=== PATIENT | female | born 1985 | race Caucasian/White ===

== ENCOUNTER 2021-01-21 17:52 | Emergency (ER) | payer SELFPAY ==
--- NOTE | 2021-01-21 18:10 | HMH.EDUTC ---
[facility] [place] Impression: Abscess of right axilla Disposition: Home, Self-Care Condition on Discharge: Good Instructions: DI for Incision and Drainage of a Skin Abscess Additional Instructions: Take antibiotics as prescribed until gone Culture should be available Friday Prescriptions: Sulfamethoxazole/Trimethoprim [Bactrim DS tablet] 1 each PO BID 10 Days #20 tab Transmission Status: Pending to [facility] Referrals: Carina Vidales [Primary Care Provider] - Time of Disposition: 18:36 Medical Decision Making - Donovan Inquiry Pt receiving controlled substance: No Vital Signs: 01/21/21 18:24 Temperature 98.4 F Temperature Source Oral Pulse Rate [Right] 81 Respiratory Rate 18 Blood Pressure [Right Arm] 164/91 H Blood Pressure Mean [Right Arm] 115 02 Sat by Pulse Oximetry 97 Oxygen Delivery Method Room Air Orders (Tests/Meds): ORDERS Category Date Time Status Wound Culture and Gram Stain Stat Micro 01/21/21 18:00 [place] [facility] [place] General Stated complaint: boil under right arm Time Seen by Provider: 01/21/21 18:10 - History of Present Illness Provider Complaint: Abscess to right axilla for a few days. Very painful. Spontaneously drained earlier today at work. Foul odor to drainage. Still has significant sized knot. Onset (ago): day(s) (3) Location: chest, right Relieving factors: none Exacerbating factors: none Associated symptoms: denies other symptoms Treatments prior to arrival: none - Related Data Previous Rx's Medication Instructions Recorded amoxicillin 500 mg tablet 500 mg PO BID 10 Days #20 tab 01/16/20 Sulfamethoxazole/Trimethoprim 1 each PO BID 10 Days #20 tab 01/21/21 [Bactrim DS tablet] Allergies Allergy/AdvReac Type Severity Reaction Status Date / Time No Known Allergies Allergy Verified 01/16/20 11:01 [facility] History - Hepatitis A Screen Attestation statement:: This patient has been screened for Hepatitis A risk factors. I have reviewed the patient's past medical history: Yes Laterality Cases: Bilateral: Myringotomy (Ear Tubes) Other Surgeries: Yes: No Previous Surgery Amputation: No Fractures: No - Social History Smoking Status: Current every day smoker Tobacco Type: cigarettes # Packs/Day (cigarettes): 1 Alcohol Intake: never Alcohol Intake Frequency:: 0-2 drinks per day Substance Use Type: denies use Occupational Status: employed Housing: house Household Members: family Family Hx:: Non-contributory ROS Obtained: Yes All systems reviewed & no additional complaints - Integumentary/Breasts Skin/Breast: Reports as per HPI, Reports boil Physical Exam - General General appearance: alert, in no apparent distress - Head Head exam: normocephalic - Eye Eye exam: Present: PERRL - Chest Chest inspection: Present: abscess (right axilla) - Respiratory Respiratory exam: Present: normal lung sounds bilaterally - Cardiovascular Cardiovascular exam: Present: regular rate, normal rhythm - Neurological Exam Neurological exam: Present: alert, oriented X3 - Psychiatric Psychiatric exam: Present: normal affect, normal mood - Skin Skin exam: Present: warm, dry, intact Procedures - Abscess I/D Site: upper extremity Side (if applicable): right Sedation/analgesia: none Local Anesthetic: lidocaine 2% Amount of anesthesia used (mL): 1.0 Technique: incised with #11 blade Irrigation: No Packing used?: iodoform Complications: bleeding
[2021-01-21 18:24] VITALS: BP 164/91; PULSE 81; RESP 18; TEMP 36.9; O2SAT 97; BMI 46.1
[2021-01-21 18:40] VITALS: BP 145/71; PULSE 78; RESP 18; TEMP 36.8; O2SAT 98
== END 2021-01-21 18:52 | disposition home or self-care (01) ==
PROVIDERS: Emergency Provider Physician Assistant; PCP Family Medicine
DX: L02.411 Cutaneous abscess of right axilla (principal); F17.210 Nicotine dependence, cigarettes, uncomplicated
CPT/HCPCS: 10060; 87070; 87077; 87186; 87205; 99202; G0463

== ENCOUNTER 2021-04-28 17:02 | Emergency (ER) | payer OTHER, SELFPAY ==
[2021-04-28 17:10] VITALS: BP 164/98; PULSE 88; RESP 22; TEMP 37; O2SAT 98; BMI 56.8
--- NOTE | 2021-04-28 17:31 | HMH.EDUTC ---
[facility] [place] Clinical Impression: Strep sore throat Finger contusion Qualifiers: Encounter type: initial encounter Finger: middle finger Damage to nail status: without damage Laterality: left Qualified Code(s): S60.032A - Contusion of left middle finger without damage to nail, initial encounter Disposition: Home, Self-Care Condition on Discharge: Good Instructions: DI for Strep Throat Additional Instructions: Start antibiotics today be sure to take it as ordered with the full length of time although you should start feeling better in 24-48 hours. Change toothbrush and toothpaste 24-48 hours after starting antibiotics Tylenol or Motrin as needed for fever or pain Encourage fluids, water, Gatorade, Powerade, try cold fluids, popsicles, ice cream will make it feel better You are contagious for 24 hours. Avoid kissing anyone, no eating or drinking after anyone. You are contagious. Follow-up the ER for new or worsening symptoms or no noticeable improvement over the next 24-48 hours. Follow-up with PCP this week. Prescriptions: Azithromycin [Zithromax 250mg tab] 250 mg PO DIRECTED #6 tab Transmission Status: Received by [facility] Referrals: Carina Vidales [Primary Care Provider] - Time of Disposition: 17:48 Medical Decision Making - Donovan Inquiry Pt receiving controlled substance: No Vital Signs: 04/28/21 17:10 Temperature 98.6 F Temperature Source Oral Pulse Rate [Right Brachial] 88 Respiratory Rate 22 Blood Pressure [Right Arm] 164/98 H Blood Pressure Mean [Right Arm] 120 Blood Pressure Source [Right Arm] Automatic Cuff Blood Pressure Position [Right Arm] Sitting 02 Sat by Pulse Oximetry 98 Oxygen Delivery Method Room Air - Lab Data Lab Results 04/28/21 17:14: Strep Scn Rapid Clinic Positive A Orders (Tests/Meds): ORDERS Category Date Time Status Hand XR left minimum 3 views [XR hand LT min 3V] Stat Exams 04/28/21 17:40 Taken Covid-19 Nasal PCR ([facility]) Routine Lab 04/28/21 17:15 Received [facility] [place] HPI - General Chief complaint: Urgent Treatment Center Stated complaint: covid test,sore throat,cough,OROSCO,weak V?D Time Seen by Provider: 04/28/21 17:32 Mode of Arrival: Ambulatory Source of Information: Patient Limitations: No Limitations Description of Symptoms (Recalled from Triage Doc. by RN): PATIENT C/O DIARRHEA, COUGH AND WEAKNESS THAT STARTED FRIDAY AND HAS GOTTEN WORSE HEENT Symptoms (Recalled from RN notes): No Resp Symptoms (Recalled from RN notes): Yes Skin Symptoms (Recalled from RN notes): No MS Symptoms (Recalled from RN notes): No Functional Status (Recalled from RN notes): WNL - History of Present Illness Provider Complaint: 35 yr old female presents for n/v/d. congestion,orosco,sore throat and body aches. pt states she also hurt her left middle finger and thinks it may be broke - Related Data Previous Rx's Medication Instructions Recorded Azithromycin [Zithromax 250mg 250 mg PO DIRECTED #6 tab 04/28/21 tab] Allergies Allergy/AdvReac Type Severity Reaction Status Date / Time No Known Allergies Allergy Verified 01/16/20 11:01 - Worker's Comp Is this a Worker's Comp case?: No [facility] History - Hepatitis A Screen Drug use history?: No High risk sexual behaviors?: No History of sexually transmitted infection?: No Currently employed?: No Childcare worker?: No Do you have indoor plumbing?: Yes Do you have electricity?: Yes Attestation statement:: This patient has been screened for Hepatitis A risk factors. I have reviewed the patient's past medical history: Yes Laterality Cases: Bilateral: Myringotomy (Ear Tubes) Other Surgeries: Yes: No Previous Surgery Amputation: No Fractures: No - Social History Smoking Status: Current every day smoker Tobacco Type: cigarettes # Packs/Day (cigarettes): 1 Alcohol Intake: never Alcohol Intake Frequency:: 0-2 drinks per day Substance Use Type: denies use Occupational St
[2021-04-28 17:32] LABS: UTC Strep Screen (Rapid) Positive (Negative)
--- NOTE | 2021-04-28 17:40 | XR_ITS ---
PROCEDURE INFORMATION: Exam: XR Left Hand Exam date and time: 04/28/21 05:40 PM Age: 35 years old Clinical indication: Finger(s) and hand; Patient HX: Lifted heavy object 04/25/21, pain 3rd left digit; Additional info: Injury TECHNIQUE: Imaging protocol: XR Left hand. Views: 3 or more views. COMPARISON: No relevant prior studies available. FINDINGS: Bones/joints: Normal. Soft tissues: Normal. IMPRESSION: No acute findings.
[2021-04-28 17:52] VITALS: BP 164/98; PULSE 88; RESP 22; TEMP 37; O2SAT 98
== END 2021-04-28 18:00 | disposition home or self-care (01) ==
PROVIDERS: Emergency Provider Nurse Practitioner Family; PCP Family Medicine
DX: J02.0 Streptococcal pharyngitis (principal); S60.032A Contusion of left middle finger without damage to nail, initial encounter; F17.210 Nicotine dependence, cigarettes, uncomplicated
CPT/HCPCS: 73130; 87880; 99202; C9803; G0463; U0003; U0005

== ENCOUNTER 2021-09-11 18:47 | Emergency (ER) | payer BC, SELFPAY ==
[2021-09-11 20:25] VITALS: BP 161/92; PULSE 91; RESP 19; TEMP 37; O2SAT 98; BMI 51.5
--- NOTE | 2021-09-11 20:39 | HMH.EDUTC ---
[facility] [place] Disposition Clinical Impression: Thoracic back pain Qualifiers: Chronicity: unspecified Back pain laterality: left Qualified Code(s): M54.6 - Pain in thoracic spine Disposition: Home, Self-Care Condition on Discharge: Good Instructions: Thoracic Back Pain Additional Instructions: Go home and rest. It would be best if you rested tomorrow too. No heavy lifting. No twisting. The muscle relaxer (cyclobenzaprine--Flexeril) will make you drowsy, so don't drive or operate heavy machinery after taking it. Follow up with your regular doctor. GO TO THE ER FOR ANY WORSENING SYMPTOMS OR CONCERN, ESPECIALLY BOWEL OR BLADDER ISSUES, SADDLE AREA NUMBNESS, FEVER, ETC Prescriptions: Cyclobenzaprine HCl [Cyclobenzaprine 10mg Tab] 10 mg PO BIDP PRN #20 tab PRN Reason: Muscle Spasm Transmission Status: Received by [facility] methylPREDNISolone [Medrol] 4 mg PO DIRECTED 6 Days #21 packet Transmission Status: Received by [facility] Referrals: Carina Monzon [Primary Care Provider] - Forms: Work/School Release Time of Disposition: 22:10 Medical Decision Making - Medical Records Medical records reviewed: No: I reviewed the patient's medical records. - Donovan Inquiry Pt receiving controlled substance: No Vital Signs: 09/11/21 20:25 Temperature 98.6 F Temperature Source Oral Pulse Rate [Left] 91 H Respiratory Rate 19 Blood Pressure [Right Arm] 161/92 H Blood Pressure Mean [Right Arm] 115 02 Sat by Pulse Oximetry 98 - Lab Data Lab results reviewed: Yes: I reviewed the patient's lab results. Lab Results 09/11/21 20:51: Urine Color Yellow, Urine Appearance Clear, Urine pH 6.5, Ur Specific [place] 1.020, Urine Protein Negative, Urine Glucose (UA) Negative, Urine Ketones Negative, Urine Blood Negative, Urine Nitrate Negative, Urine Bilirubin Negative, Urine Urobilinogen 0.2, Ur Leukocyte Esterase Trace, Tst Clinic Negative Orders (Tests/Meds): ED MEDICATIONS Discontinued Medications Generic Name Dose Route Start Last Admin Trade Name Freq PRN Reason Stop Dose Admin Ketorolac Tromethamine 60 mg 09/11/21 21:56 09/11/21 22:14 Ketorolac 60mg/2ml Vial IM 09/11/21 21:57 60 mg ONCE ONE Administration ORDERS Category Date Time Status Urine Culture Stat Micro 09/11/21 20:58 Received - Radiology Data #1 Image(s): Chest Image Reviewed: Yes I reviewed the patient's radiology image, Yes I have reviewed radiologist's interpretation Preliminary Findings: No Infiltrates Seen PROCEDURE INFORMATION: Exam: XR Chest Exam date and time: 09/11/2021 9:04 PM Age: 36 years old Clinical indication: Left-sided; Patient HX: Posterior left sided chest pain that started Friday night/friday morning. Smoker, HX of covid TECHNIQUE: Imaging protocol: XR of the chest. Views: 2 views. COMPARISON: No relevant prior studies available. FINDINGS: Lungs: Minimal left basilar atelectasis. Mild bilateral perihilar bronchial wall thickening, compatible with reactive airway disease or bronchitis. No focal consolidation. Pleural spaces: Unremarkable. No pleural effusion. No pneumothorax. Heart/Mediastinum: Normal. Bones/joints: No acute abnormality. IMPRESSION: 1. Mild bilateral perihilar bronchial wall thickening, compatible with reactive airway disease or bronchitis. 2. No focal consolidation. [facility] [place] HPI - General Stated complaint: back pain Time Seen by Provider: 09/11/21 20:39 Mode of Arrival: Ambulatory Source of Information: Patient Limitations: No Limitations Description of Symptoms (Recalled from Triage Doc. by RN): pt c/o pain in her L lower back. pt denies injury, n/v and urinary symptoms. HEENT Symptoms (Recalled from RN notes): No Resp Symptoms (Recalled from RN notes): No Skin Symptoms (Recalled from RN notes): No MS Symptoms (Recalled from RN notes
[2021-09-11 20:58] LABS: Apearance,Urine Clear (Clear); Bilirubin,Urine Negative (Negative); Blood, Urine Negative (Negative); Color,Urine Yellow (Yellow); Glucose,Urine (UA) Negative (Negative); Ketones,Urine Negative (Negative); PH,Urine 6.5 (5.0-8.5); Protein,Urine Negative (Negative); UTC Leukocyte Esterase,Urine Trace (Negative); UTC Nitrate,Urine Negative (Negative); UTC Pregnancy Test, Urine Negative (Negative); Urobilinogen,Urine 0.2 EU/dl (0.2)
--- NOTE | 2021-09-11 21:04 | XR_ITS ---
PROCEDURE INFORMATION: Exam: XR Chest Exam date and time: 09/11/2021 9:04 PM Age: 36 years old Clinical indication: Left-sided; Patient HX: Posterior left sided chest pain that started Friday night/friday morning. Smoker, HX of covid TECHNIQUE: Imaging protocol: XR of the chest. Views: 2 views. COMPARISON: No relevant prior studies available. FINDINGS: Lungs: Minimal left basilar atelectasis. Mild bilateral perihilar bronchial wall thickening, compatible with reactive airway disease or bronchitis. No focal consolidation. Pleural spaces: Unremarkable. No pleural effusion. No pneumothorax. Heart/Mediastinum: Normal. Bones/joints: No acute abnormality. IMPRESSION: 1. Mild bilateral perihilar bronchial wall thickening, compatible with reactive airway disease or bronchitis. 2. No focal consolidation.
--- NOTE | 2021-09-11 21:44 | ECG_ITS ---
APPROVED REPORT Exam: Resting ECG HR:79 bpm ECG Measurements Heart Rate 79 AXES SC 152 P 37 QRSd 97 QRS 47 QT 388 T 29 QTc 422 Conclusion SINUS RHYTHM NORMAL ECG UNCONFIRMED REPORT Electronically signed by : Moreno Page MD 09/12/2021 18:02:46
[2021-09-11 22:17] VITALS: BP 161/92; PULSE 91; RESP 19; TEMP 37
== END 2021-09-11 22:19 | disposition home or self-care (01) ==
PROVIDERS: Emergency Provider Nurse Practitioner Family; PCP Family Medicine
DX: M54.6 Pain in thoracic spine (principal); M54.50 Low back pain, unspecified; B96.4 Proteus (mirabilis) (morganii) as the cause of diseases classified elsewhere; F17.210 Nicotine dependence, cigarettes, uncomplicated; Z79.52 Long term (current) use of systemic steroids; Z79.899 Other long term (current) drug therapy
CPT/HCPCS: 71046; 81003; 81025; 87086; 87088; 87186; 93005; 93041; 96372; 99213; G0463

== ENCOUNTER 2022-11-23 14:38 | Emergency (ER) | payer BC, SELFPAY ==
[2022-11-23 14:45] VITALS: BP 140/90; PULSE 83; RESP 18; TEMP 37; O2SAT 100; BMI 55.0
--- NOTE | 2022-11-23 15:13 | EXP.UTC ---
Discharge Plan Disposition Patient Disposition: Home, Self-Care Condition: Good Prescriptions Prescriptions: New azithromycin [azithromycin] 250 mg tablet 250 mg PO DIRECTED Qty: 6 0RF Rx Instructions: Take two (2) tablets on day #1, then one (1) tablet day #2 thru #5 prednisone [prednisone] 20 mg tablet 20 mg PO BID Qty: 10 0RF fluticasone propionate [fluticasone propionate] 50 mcg/actuation spray,suspension 1 spray intranasal DAILY Qty: 9.9 0RF No Action atorvastatin 10 mg tablet 10 mg PO DAILY Label Comments: TAKE 1 TABLET BY MOUTH ONCE DAILY. glipizide 10 mg tablet 10 mg PO BID Label Comments: TAKE 1 TABLET BY MOUTH 2 TIMES DAILY (WITH MEALS). omeprazole 40 mg capsule,delayed release(DR/EC) 40 mg PO DAILY Label Comments: TAKE 1 CAPSULE BY MOUTH ONCE DAILY. estradiol 2 mg tablet 2 mg PO DAILY Label Comments: TAKE 1 TABLET BY MOUTH DAILY. lisinopril 5 mg tablet 5 mg PO DAILY Label Comments: TAKE 1 TABLET BY MOUTH DAILY. progesterone micronized 100 mg capsule 100 mg PO DAILY Label Comments: TAKE 1 CAPSULE BY MOUTH NIGHTLY. Mounjaro 15 mg/0.5 mL pen injector 15 mg SQ WEEKLY Label Comments: INJECT 15 MG SUBCUTANEOUSLY ONCE A WEEK Referrals Follow up/Referrals: Provider,Referral, MD [Primary Care Provider] - See instructions Activity Restrictions/Add. Instructions Additional Instructions/Restrictions: Start antibiotic today. Be sure to complete entire prescription even if feeling better Tylenol and ibuprofen as needed for pain or fever Humidifier/vaporizer/hot steamy shower Follow-up with primary care tomorrow. Follow-up immediately in the ER of the [facility] for new or worsening symptoms or no noticeable improvement over the next 48-72 hours. Stop smoking Start steroids today. monitor glucose while on steroids,Helps with inflammation therefore coughing and wheezing. flonase daily Clinical Impressions Clinical Impression: Acute maxillary sinusitis, Acute bronchitis Stand Alone Forms Stand Alone Forms: Work/School Release Instructions Patient Instructions: DI for Sinusitis Discharge ED Provider: Nelia ([facility])[place]ie [facility] [place] General Stated complaint: Congestion, bodyaches, Cough Mode of Arrival: Ambulatory Source of Information: Patient Limitations: No Limitations Time Seen by Provider: 11/23/22 15:13 Description of Symptoms (Recalled from Triage Doc. by RN): cough, light headed, OROSCO, chest and back pain, diarrhea, congestion, and productive cough. HEENT Symptoms (Recalled from RN notes): Yes Resp Symptoms (Recalled from RN notes): No Skin Symptoms (Recalled from RN notes): No MS Symptoms (Recalled from RN notes): No Functional Status (Recalled from RN notes): n/a History of Present Illness Provider Complaint: 37 yr old female presents for coughing up thick green sputum, light headed, OROSCO, chest and back pain with coughing, diarrhea, dark thick congestion, and productive cough. Related Data Home Medications Medication Instructions Recorded Confirmed atorvastatin 10 mg tablet 10 mg PO DAILY . 11/23/22 11/23/22 estradiol 2 mg tablet 2 mg PO DAILY . 11/23/22 11/23/22 glipizide 10 mg tablet 10 mg PO BID Diabetes 11/23/22 11/23/22 lisinopril 5 mg tablet 5 mg PO DAILY . 11/23/22 11/23/22 omeprazole 40 mg capsule,delayed 40 mg PO DAILY gerd 11/23/22 11/23/22 release progesterone micronized 100 mg 100 mg PO DAILY . 11/23/22 11/23/22 capsule tirzepatide 15 mg/0.5 mL 15 mg SQ WEEKLY Diabetes 11/23/22 11/23/22 subcutaneous pen injector (Anselmo) Previous Rx's Medication Instructions Recorded azithromycin 250 mg tablet 250 mg PO DIRECTED #6 tabs 11/23/22 fluticasone propionate 50 1 spray intranasal DAILY #9.9 mL 11/23/22 mcg/actuation nasal spray,suspension prednisone 20 mg tablet 20 mg PO BID #10 tabs 11/23/22 Allergies Allergy/AdvReac Type Severity Reaction
[2022-11-23 15:25] VITALS: BP 140/90; PULSE 83; RESP 18; TEMP 37; O2SAT 100
== END 2022-11-23 15:24 | disposition home or self-care (01) ==
PROVIDERS: Emergency Provider Nurse Practitioner Family
DX: J01.00 Acute maxillary sinusitis, unspecified (principal); J20.9 Acute bronchitis, unspecified; R07.89 Other chest pain; M54.9 Dorsalgia, unspecified; R19.7 Diarrhea, unspecified; F17.210 Nicotine dependence, cigarettes, uncomplicated
CPT/HCPCS: 99212; 99214; G0463

== ENCOUNTER 2023-06-10 08:17 | Emergency (ER) | payer BC, SELFPAY ==
[2023-06-10] VITALS (35 sets, daily range): BP systolic 78–252; BP diastolic 34–175; PULSE 73–113; RESP 12–45; TEMP 36.8; O2SAT 92–100; BMI 44.2
--- NOTE | 2023-06-10 | ECG_ITS ---
APPROVED REPORT Exam: Resting ECG HR:87 bpm ECG Measurements Heart Rate 87 AXES KS 175 P 46 QRSd 109 QRS 38 QT 374 T 30 QTc 418 Conclusion SINUS RHYTHM POSSIBLE LEFT ATRIAL ENLARGEMENT [-0.1mV P-WAVE IN V1/V2] LOW QRS VOLTAGE IN PRECORDIAL LEADS [QRS DEFLECTION < 1.0 mV IN CHEST LEADS] BORDERLINE ECG UNCONFIRMED REPORT Electronically signed by : Moreno Page MD 06/10/2023 16:51:51
[2023-06-10 08:27] LABS: VBG Base Excess -23.7 mmol/L (-2.4-2.3); VBG HCO3 11.4 mmol/L (23-30); VBG Oxygen Saturation 76.1 % (50-70); VBG PO2 64.1 mmol/L (28-40); VBG Total CO2 13.9 mmol/L (23-27)
--- NOTE | 2023-06-10 08:34 | PC.NURSE ---
RESPIRATORY CARE NOTE: SPUTUM SPECIMEN SENT TO LAB
--- NOTE | 2023-06-10 08:47 | CT_ITS ---
FINAL REPORT TECHNIQUE: Postcontrast axial images through the abdomen and pelvis were performed. This study was performed with techniques to keep radiation doses as low as reasonably achievable, (ALARA). Individualized dose reduction techniques using automated exposure control or adjustment of mA and/or kV according to the patient's size were employed. CLINICAL HISTORY: post code FINDINGS: Abdomen: The liver parenchyma is homogeneous. The gallbladder is absent. The spleen is unremarkable. The adrenals are normal. The pancreas is unremarkable. The kidneys enhance appropriately. The aorta is normal in caliber. No free fluid or adenopathy is identified. No findings for mechanical bowel obstruction are identified. Pelvis: The appendix is not identified. The urinary bladder is unremarkable. No free fluid, free air, abscess or adenopathy is identified. IMPRESSION: No acute process identified. Reviewed, Interpreted and Dictated by Murray Katz MD Transcribed by Linda Reid Authenticated and [facility]
--- NOTE | 2023-06-10 08:47 | CT_ITS ---
FINAL REPORT TECHNIQUE: Axial CT images were performed through the head. Coronal reformatted images were submitted. This study was performed with techniques to keep radiation doses as low as reasonably achievable (ALARA). Individualized dose reduction techniques using automated exposure control or adjustment of mA and/or kV according to the patient's size were employed. CLINICAL HISTORY: post code, hit head. loc since FINDINGS: The ventricles are normal in size. There is no evidence of hemorrhage. There is prominent coto white differentiation. There is no mass or edema identified. There is no abnormal extra-axial fluid seen. There is mild mucoperiosteal thickening in the left maxillary and ethmoid air cells. IMPRESSION: No acute intracranial process. Reviewed, Interpreted and Dictated by Murray Katz MD Transcribed by Linda Reid Authenticated and [facility]
--- NOTE | 2023-06-10 08:47 | CT_ITS ---
FINAL REPORT TECHNIQUE: After the administration of IV contrast, axial images through the head was performed by computed tomography. Sagittal and coronal reformatted images were obtained and reviewed. This study was performed with techniques to keep radiation doses as low as reasonably achievable (ALARA). Individualized dose reduction techniques using automated exposure control or adjustment of mA and/or kV according to the patient's size were employed. CLINICAL HISTORY: post code, fall hit head FINDINGS: The ventricles are normal in size. There is no evidence of hemorrhage. There is no mass or edema identified. There is no abnormal extra-axial fluid seen. There is mild mucoperiosteal thickening in the left maxillary and ethmoid sinuses. There is no evidence of abnormal contrast enhancement on the postcontrast images. IMPRESSION: No acute intracranial abnormality. Reviewed, Interpreted and Dictated by Murray Katz MD Transcribed by Linda Reid Authenticated and [facility]
--- NOTE | 2023-06-10 08:47 | CT_ITS ---
FINAL REPORT TECHNIQUE: The patient was injected with IV contrast. Axial images were obtained through the chest in a PE protocol. 3-D reconstruction images were also performed. Individualized dose reduction techniques using automated exposure control or adjustment of the MA and/or KV according to patient's size were employed. CLINICAL HISTORY: post code, intubated FINDINGS: The patient has been intubated. Endotracheal tube is in the right mainstem bronchus, needs to be retracted 2 cm. The pulmonary vasculature is suboptimally opacified but there is no definite pulmonary embolism or dissection. There is no axillary adenopathy. There is no hilar or mediastinal adenopathy. The heart size is normal. There is no pericardial or pleural effusion. Limited images of the upper abdomen are unremarkable. There are dense patchy bibasilar airspace infiltrates. There is also airspace opacity in the posterior aspect of both upper lobes consistent with acute pneumonia. IMPRESSION: No definite pulmonary embolus or dissection. Acute pneumonia. Mild positioned endotracheal tube. Needs to be retracted 2 cm. Ordering physician was notified of findings on 06/10 2023 at 10:40 a.m. Reviewed, Interpreted and Dictated by Murray Katz MD Transcribed by Linda Reid Authenticated and [facility]
--- NOTE | 2023-06-10 08:49 | XR_ITS ---
FINAL REPORT CLINICAL HISTORY: post code, intubated FINDINGS: SINGLE-VIEW CHEST The heart size is normal. The mediastinum is normal. Endotracheal tube is in the right mainstem bronchus. Needs to be retracted 2 cm. There is mild patchy airspace opacity in the perihilar and infrahilar regions. There is no pneumothorax. IMPRESSION: Mild positioned endotracheal tube. Ordering physician was notified of findings on 06/10/2023 at 10:40 a.m.. Airspace opacity in the perihilar and infrahilar regions. Reviewed, Interpreted and Dictated by Murray Katz MD Transcribed by Linda Reid Authenticated and [facility]
--- NOTE | 2023-06-10 08:57 | PC.NURSE ---
Dr Thurman spoke with family
--- NOTE | 2023-06-10 09:01 | HMH.EDGENADL ---
Discharge Plan Disposition Patient Disposition: Xfer Short-Term Hosp Condition: Critical Prescriptions Prescriptions: No Action atorvastatin 10 mg tablet 10 mg PO DAILY Patient Comments: TAKE 1 TABLET BY MOUTH ONCE DAILY. glipizide 10 mg tablet 10 mg PO BID Patient Comments: TAKE 1 TABLET BY MOUTH 2 TIMES DAILY (WITH MEALS). omeprazole 40 mg capsule,delayed release(DR/EC) 40 mg PO DAILY Patient Comments: TAKE 1 CAPSULE BY MOUTH ONCE DAILY. estradiol 2 mg tablet 2 mg PO DAILY Patient Comments: TAKE 1 TABLET BY MOUTH DAILY. lisinopril 5 mg tablet 5 mg PO DAILY Patient Comments: TAKE 1 TABLET BY MOUTH DAILY. progesterone micronized 100 mg capsule 100 mg PO DAILY Patient Comments: TAKE 1 CAPSULE BY MOUTH NIGHTLY. Mounjaro 15 mg/0.5 mL pen injector 15 mg SQ WEEKLY Patient Comments: INJECT 15 MG SUBCUTANEOUSLY ONCE A WEEK azithromycin [azithromycin] 250 mg tablet 250 mg PO DIRECTED Qty: 6 0RF Rx Instructions: Take two (2) tablets on day #1, then one (1) tablet day #2 thru #5 prednisone [prednisone] 20 mg tablet 20 mg PO BID Qty: 10 0RF fluticasone propionate [fluticasone propionate] 50 mcg/actuation spray,suspension 1 spray intranasal DAILY Qty: 9.9 0RF Referrals Follow up/Referrals: Provider,Referral, [Primary Care Provider] - See instructions Discharge ED Provider: Toño Larson General Adult HPI <Clare Thurman MD - Last Filed: 06/10/23 15:32> General Chief complaint: Cardiac Arrest/CPR Stated complaint: unresponsive Time Seen by Provider: 06/10/23 09:01 History of Present Illness HPI narrative: 37-year-old female with history of bilateral ovary resections, obesity, hypertension, diabetes, recent abscess I&D under general anesthesia coming into the ED via EMS after cardiac arrest. Family, who arrived to the hospital well after patient arrival noted that the patient woke up and was complaining of nausea and diaphoresis. Patient went to the bathroom and took her diabetic locations. Patient was reportedly returning to the bathroom when notes that she started shaking and she fell, striking her head hard on furniture. After patient fell onto the ground, notes agonal breathing and continued seizure-like activity. On EMS arrival, the patient was in asystole. ACLS was immediately initiated. In route, patient reportedly was shocked twice for pulseless ventricular tachycardia, was given multiple rounds of epinephrine, and an Igel was placed. Patient was reportedly down approximately 20 minutes before EMS had ROSC. On arrival to the ED, patient was hypoxic to 60% with Igel in place, cyanotic diffusely. Fingerstick was within normal limits. Patient was borderline hypotensive. Patient was immediately intubated with a 7.5 ET tube with rapid improvement of oxygen sats and perfusion as cyanosis improved significantly. Lafym-aa-rynd gas was notable for pH of 6.8. Patient was given 1 L of IV fluids, arterial line was placed and patient started on Levo drip. While being resuscitated, patient started having generalized tonic-clonic seizure-like activity, patient was given 2 rounds of 4 mg Versed, loaded with Keppra. Patient was immediately taken to CT scan once patient was stable. Related Data Home Medications Medication Instructions Recorded Confirmed atorvastatin 10 mg tablet 10 mg PO DAILY . 11/23/22 11/23/22 estradiol 2 mg tablet 2 mg PO DAILY . 11/23/22 11/23/22 glipizide 10 mg tablet 10 mg PO BID Diabetes 11/23/22 11/23/22 lisinopril 5 mg tablet 5 mg PO DAILY . 11/23/22 11/23/22 omeprazole 40 mg capsule,delayed 40 mg PO DAILY gerd 11/23/22 11/23/22 release progesterone micronized 100 mg 100 mg PO DAILY . 11/23/22 11/23/22 capsule tirzepatide 15 mg/0.5 mL 15 mg SQ WEEKLY Diabetes 11/23/22 11/23/22 subcutaneous pen injector (Anselmo) Previous Rx's Medication Instructio
[2023-06-10 09:04] LABS: ABG Base Excess -21.7 mmol/L (-2.4-2.3); ABG HCO3 9.7 mmhg (22.0-26.0); ABG Oxygen Saturation 99 % (90-100); ABG PCO2 41.1 mmhg (35.0-45.0); ABG PO2 242.3 mmhg (80-100)
[2023-06-10 09:05] LABS: Allen's Test Non Applicable; Oxygen 100% %; PEEP 8; Source Right Radial; Tidal Volume 420; Vent Rate 22
[2023-06-10 09:05] LABS: Chloride 108 mmol/L (98-107); Potassium 3.5 mmoL/L (3.5-5.1); Sodium 139 mmol/L (136-145)
[2023-06-10 09:06] LABS: Basophils # 0.2 K/mm3 (0-0.2); Basophils % 1.1 % (0.1-2.0); Eosinophils # 0.1 K/mm3 (0.0-0.4); Eosinophils % 0.7 % (0.1-12.0); Hematocrit 55.3 % (37.0-47.0); Hemoglobin 17.4 g/dL (12.2-16.2); Lymphocytes # 5.2 K/mm3 (0.7-4.5); Lymphocytes % 36.4 % (10-50); Mean Corpuscular HGB Conc 31.5 g/dL (31.8-35.4); Mean Corpuscular Hemoglobin 30.8 pg (27.0-31.2); Mean Corpuscular Volume 97.8 fl (81-99); Mean Platelet Volume 9.3 fl (7.4-10.4); Monocytes # 0.5 K/mm3 (0.1-1.0); Monocytes % 3.6 % (1.7-9.3); Neutrophils # 8.4 K/mm3 (1.8-7.8); Neutrophils % 58.3 % (37.0-80.0); Platelet Count 289 K/mm3 (142-424); Red Blood Count 5.65 M/mm3 (4.20-5.40); Red Cell Distribution Width 13.7 % (11.5-17.5); White Blood Count 14.3 K/mm3 (4.8-10.8)
[2023-06-10 09:08] LABS: Alanine Aminotransferase 97 U/L (12-78); Albumin Level 2.9 g/dl (3.5-5.0); Albumin/Globulin Ratio 1.2 (1.1-1.8); Alkaline Phosphatase 153 U/L (38-126); Anion Gap 18.5 mEq/L (5-15); Aspartate Amino Transferase 133 U/L (14-36); Bilirubin,Total 0.5 mg/dl (0.2-1.3); Blood Urea Nitrogen 14 mg/dl (7-17); Calcium 7.7 mg/dl (8.4-10.2); Carbon Dioxide 16 mmol/L (22.0-30.0); Creatinine Clearance Estimated 93 mL/min (50-200); Estimated Glomerular Filt Rate 70 ml/min (>60); GFR (African American) 85 ML/MIN (>60); Globulin 2.5 g/dL (1.3-3.2); Glucose 347 mg/dl (74-100); Total Protein,Serum 5.4 g/dl (6.3-8.2)
[2023-06-10 09:08] LABS: ABG PH 6.99 mmol/L (7.35-7.45)
[2023-06-10 09:21] LABS: Troponin I 0.04 ng/ml (0.00-0.034)
[2023-06-10 09:26] LABS: T4 (Thyroxine) 6.9 ug/dl (5.53-11.0)
[2023-06-10 09:39] LABS: Magnesium 2.3 mg/dl (1.6-2.3); Salicylate < 1.0 mg/dL (2.0-20.0); Thyroid Stimulating Hormone 4.89 uIU/mL (0.465-4.68)
[2023-06-10 09:40] LABS: Acetaminophen < 10 ug/ml (10-30)
--- NOTE | 2023-06-10 09:43 | PC.NURSE ---
[facility]ATH[facility] CONTACTED A THIS TIME, WILL CALL BACK
[2023-06-10 09:47] LABS: Ethyl Alcohol < 10 mg/dl (0-10)
[2023-06-10 10:02] LABS: Microscopic, Urine URINE MICROSCOPIC (MICROSCOPIC)
[2023-06-10 10:12] LABS: Appearance,Urine CLEAR (Clear); Bilirubin,Urine Negative (Negative); Blood, Urine 3+ (Negative); Color,Urine YELLOW (Yellow); Glucose,Urine (UA) 2+ (Negative); Ketones,Urine Negative (Negative); Leukocyte Esterase,Urine Negative (Negative); Nitrate,Urine Negative (Negative); PH,Urine 6.5 (5.0-8.5); Protein,Urine 3+ (Negative); Urobilinogen,Urine 0.2 EU/dl (0.2)
[2023-06-10 10:24] LABS: Benzodiazepines Screen,Urine Positive ng/ml (<200)
[2023-06-10 10:25] LABS: Amphetamine/Metha Screen,Urine Negative ng/ml (<1000); Barbiturates Screen,Urine Negative ng/ml (<200)
[2023-06-10 10:26] LABS: Methadone Screen,Urine Negative ng/ml (<300)
[2023-06-10 10:27] LABS: Cannabinoid Screen,Urine Negative ng/ml (<50); Cocaine Screen,Urine Negative ng/ml (<300)
[2023-06-10 10:27] LABS: VBG PCO2 81.2 mmol/L (35-51); VBG PH 6.77 mmol/L (7.31-7.41)
[2023-06-10 10:28] LABS: Opiate Screen,Urine Negative ng/ml (<300)
[2023-06-10 10:29] LABS: Phencyclidine Screen,Urine Negative ng/ml (<25)
[2023-06-10 10:33] LABS: Bacteria,Urine Trace /lpf; WBC,Urine Occasional #/hpf (0-3)
--- NOTE | 2023-06-10 10:36 | PC.NURSE ---
verified barb Hodge in the pharmacy that levophed and fentanyl are compatible gtt.
--- NOTE | 2023-06-10 10:38 | PC.NURSE ---
Dr Thurman speaking with [facility] radiologist
--- NOTE | 2023-06-10 10:48 | PC.NURSE ---
Dr Thurman speaking to [facility]
--- NOTE | 2023-06-10 10:57 | PC.NURSE ---
pt family coming back 2 at a time to see pt.
--- NOTE | 2023-06-10 11:05 | PC.NURSE ---
Dr Thurman spoke with Dr Calderón, pt to stay in ER
[2023-06-10 11:16] LABS: Lactic Acid 6.3 mmol/L (0.7-2.1)
--- NOTE | 2023-06-10 11:16 | PC.NURSE ---
1116 CRITICAL LACTIC 6.3 RECEIVED FROM [facility] IN LAB, PT ANME AND R/V. DR MALONE NOTIFIED. NO NEW ORDERS
--- NOTE | 2023-06-10 11:18 | PC.NURSE ---
Dr. Thurman at bedside updating spouse and sister.
--- NOTE | 2023-06-10 11:46 | PC.NURSE ---
pt appears to be seizing again, tremors in all limbs and nystagmus. Dr. Thurman notified and he is s/w pharmacy regarding medications.
--- NOTE | 2023-06-10 12:19 | PC.NURSE ---
titrated meds up: Versed 4.2, fentanyl 40, and Epi 5
--- NOTE | 2023-06-10 13:29 | ECG_ITS ---
APPROVED REPORT Exam: Resting ECG HR:77 bpm ECG Measurements Heart Rate 77 AXES NE 159 P 60 QRSd 106 QRS 47 QT 400 T 46 QTc 432 Conclusion SINUS RHYTHM POSSIBLE LEFT ATRIAL ENLARGEMENT [-0.1mV P-WAVE IN V1/V2] LOW QRS VOLTAGE IN PRECORDIAL LEADS [QRS DEFLECTION < 1.0 mV IN CHEST LEADS] BORDERLINE ECG UNCONFIRMED REPORT Electronically signed by : Moreno Page MD 06/10/2023 16:50:12
--- NOTE | 2023-06-10 14:22 | XR_ITS ---
FINAL REPORT CLINICAL HISTORY: ngt confirm placement FINDINGS: SINGLE-VIEW CHEST The heart size is normal. The mediastinum is normal. Endotracheal tube tip terminates 1 cm superior to the zena. NG tube is in the stomach. There is atelectasis in the left perihilar region. There is no pneumothorax. IMPRESSION: Lines and tubes as above. Reviewed, Interpreted and Dictated by Murray Katz MD Transcribed by Linda Reid Authenticated and [facility]
--- NOTE | 2023-06-10 14:37 | PC.NURSE ---
update with [facility] , patient has bed assigned but is not quite ready yet, they will call as soon as its ready.
[2023-06-10 15:00] LABS: Reflex Lactic Add Lactic Reflex
--- NOTE | 2023-06-10 15:07 | PC.NURSE ---
[facility] called about patient transport due to size. They have accepted and are awaiting standby for call back to be enroute.
--- NOTE | 2023-06-10 15:14 | PC.NURSE ---
xray at bedside to confirm ngt placement. Dr. Thurman viewed the images. Placed to [facility] Intermittent, bright red blood noted in tube. Dr Thurman notified of this.
--- NOTE | 2023-06-10 15:18 | PC.NURSE ---
rad at bedside for portable cxr for ng tube placement
[2023-06-10 15:25] LABS: Lactic Acid Follow Up (RFLX 1) 6.1 mmol/L (0.7-2.1)
[2023-06-10 15:28] LABS: POC Glucose,Bedside 315 (70-110)
[2023-06-10 15:35] LABS: ABG Base Excess -18.4 mmol/L (-2.4-2.3); ABG HCO3 10.8 mmhg (22.0-26.0); ABG Oxygen Saturation 97 % (90-100); ABG PCO2 33.1 mmhg (35.0-45.0); ABG PO2 106.3 mmhg (80-100); ABG TCO2 11.8 mmhg (23-27)
[2023-06-10 15:38] LABS: Oxygen 80 %; Tidal Volume 420
[2023-06-10 15:39] LABS: PEEP 8; Source A-LINE; Vent Rate 22
[2023-06-10 15:41] LABS: ABG PH 7.13 mmol/L (7.35-7.45)
[2023-06-10 15:47] LABS: Acetone, Serum (Rapid) None Detected (None Detect)
[2023-06-10 17:11] LABS: Reflex Lactic (2 hrs) Add Lactic Reflex
--- NOTE | 2023-06-10 17:26 | PC.NURSE ---
[facility] @ [facility] called to given bed assignment: Dr. Gaudencio Chand is the accepting provider, [facility]- Floor 9- Rm 138. Call report to [phone]
--- NOTE | 2023-06-10 18:02 | PC.NURSE ---
Gave report to Flight crew
--- NOTE | 2023-06-10 18:46 | PC.NURSE ---
pt loaded onto [facility] stretcher and into Helicopter. Family given directions and visiting policy update for [facility]
--- NOTE | 2023-06-10 18:48 | PC.NURSE ---
pt left with [facility]
== END 2023-06-10 18:49 | disposition short-term general hospital (02) ==
PROVIDERS: Emergency Medicine; Emergency Provider Emergency Medicine
DX: I46.9 Cardiac arrest, cause unspecified (principal); I47.20 Ventricular tachycardia, unspecified; R09.02 Hypoxemia; I10 Essential (primary) hypertension; E11.9 Type 2 diabetes mellitus without complications; F17.210 Nicotine dependence, cigarettes, uncomplicated
CPT/HCPCS: 31500; 70450; 70460; 71045; 71275; 74177; 80053; 80305; 80329; 81001; 82009; 82803; 82962; 83605; 83735; 84436; 84443; 84484; 85025; 87070; 87205; 92950; 93005; 96361; 96365; 96366; 96367; 96375; 96376; 99291; 99292; J1953; J2543; J3370; Q9967